=== PATIENT | male | born 1960 | race Caucasian/White ===

== ENCOUNTER → 2018-05-30 06:30 | Outpatient (CLI) | payer OTHER, SELFPAY ==
--- NOTE | 2018-05-30 06:39 | XR_ITS ---
XR shoulder LT min 2V HISTORY: ITS.REASON: ROTATOR CUFF SYNDROME OF LEFT SHOULDER, left shoulder pain ORDERING PHYSICIAN: Carlo Gill MD PATIENT AGE: 58 years Comparison: None FINDINGS: No fracture or dislocation. No lytic or blastic change. There is normal mineralization. There is mild subacromial stenosis along with mild hypertrophic changes of the greater tuberosity. These findings may be seen seen with rotator cuff disease. IMPRESSION: Mild subacromial stenosis and mild hypertrophic change of the greater tuberosity may be seen with rotator cuff disease.
== END ==
PROVIDERS: PCP Family Medicine; Visit Provider Family Medicine
DX: M75.102 Unspecified rotator cuff tear or rupture of left shoulder, not specified as traumatic (principal)
CPT/HCPCS: 73030

== ENCOUNTER 2018-06-23 09:00 | Outpatient (RCR) | payer OTHER, SELFPAY ==
--- NOTE | 2018-06-20 10:37 | HMH.OTOPEV ---
PHYSICIAN CERTIFICATION: I certify the specified therapy services for Wilder J Palmer JR are required, authorized, and reviewed every 30 days.
== END 2018-06-23 09:05 | disposition home or self-care (01) ==
LOC: OT 09:00
PROVIDERS: Visit Provider Family Medicine
DX: M75.102 Unspecified rotator cuff tear or rupture of left shoulder, not specified as traumatic (principal)
CPT/HCPCS: 97110; 97165

== ENCOUNTER → 2019-04-13 15:24 | Outpatient (CLI) | payer OTHER, SELFPAY ==
[2019-04-13 16:22] LABS: Adenovirus F 40/41, stool Not Detected (NotDetected); Astrovirus Not Detected (NotDetected); Campylobacter Not Detected (NotDetected); Clostridium Difficile A/B, PCR Not Detected (NotDetected); Cryptosporidium Not Detected (NotDetected); Cyclospora Cayetanesis Not Detected (NotDetected); Entamoeba histolytica Not Detected (NotDetected); Enteroaggregative E coli Not Detected (NotDetected); Enteropathogenic E coli Not Detected (NotDetected); Enterotoxigenic E coli Not Detected (NotDetected); Giardia lamblia Not Detected (NotDetected); Norovirus Not Detected (NotDetected); Plesimonas Shigalloides, PCR Not Detected (NotDetected); Rotavirus A Not Detected (NotDetected); Salmonella, PCR Not Detected (NotDetected); Sapovirus Not Detected (NotDetected); Shiga-like toxin E coli Not Detected (NotDetected); Shigella Enterovasive E coli Not Detected (NotDetected); Vibrio Cholerae Not Detected (NotDetected); Vibrio, PCR Not Detected (NotDetected); Yersinia Entercolitica, PCR Not Detected (NotDetected)
== END ==
PROVIDERS: PCP Nurse Practitioner; Visit Provider Nurse Practitioner
DX: C83.18 Mantle cell lymphoma, lymph nodes of multiple sites (principal); C18.8 Malignant neoplasm of overlapping sites of colon
CPT/HCPCS: 87507

== ENCOUNTER → 2019-10-23 08:26 | Outpatient (CLI) | payer OTHER, SELFPAY ==
--- NOTE | 2019-10-23 08:30 | XR_ITS ---
PROCEDURE: XR SHOULDER LT MIN 2V CLINICAL INDICATION: left shoulder COMPARISON: SHOULDCMLT XR shoulder LT min 2V from 05/30/2018 FINDINGS: No fracture, dislocation, lytic change, or blastic change evident. No significant degenerative change IMPRESSION: Negative left shoulder Dictated by: Ismael Solorio MD 10/23/2019 18:06 Electronically signed by Ismael Solorio MD in [place] 10/23/2019 18:06
== END ==
PROVIDERS: PCP Nurse Practitioner; Visit Provider Orthopaedic Surgery
DX: M25.512 Pain in left shoulder (principal)
CPT/HCPCS: 73030

== ENCOUNTER 2019-11-05 14:00 | Outpatient (RCR) | payer OTHER, SELFPAY ==
--- NOTE | 2019-09-25 10:25 | HMH.OTOPEV ---
OT Inpatient Evaluation Rehab OT Outpatient Eval Start: 09/25/19 09:49 Freq: Status: Active Protocol: Document 09/25/19 09:50 RMMORRIS (Rec: 09/25/19 10:14 [id number] Electronically Signed By Wesley Beach OT 09/25/19 09:50 Outpatient Therapy Subjective History Subjective History Pt is a 59 year old male who reports to therapy for initial evaluation to left shoulder. Pt claims he had therapy to left shoulder for the same issues ~1 year ago. He began having pain and decreased motion again ~1 month ago and does not recall a specific injury causing the issues. Pt does have a past medical history of Colon CA and lymphoma (February 2019 diagnosis). Pt is still receiving monthly chemo treatments for this. Pt does demonstrate with decreased AROM and minimal strength deificts. Pt also has a palpable lumb around the medial deltoid; this could represent a possible tear. Therapist recommend pt go to ortho for further direction in imaging and treatment. Pt will continue to be seen in order to address all deficits. Chief Complaint Pain,Stiff,Weakness Symptom Type Ache,Throb,Sharp,Dull,Burning Symptoms Relieved By Rest/Positioning Symptoms Aggravated By Physical Activity,Lifting Prior Functional Limitations None Current Functional Limitations Reaching,Lifting,Housework, Sleeping,Recreation Activity Symptom Description Intermittent,Activity Dependent Level of pain today (0-10) 0 Pain scale - at its best (0-10) 0 Pain scale - at its worst (0-10) 6 Shoulder/Elbow Eval Shoulder Objective Measurements Shoulder ROM Left Shoulder Abduction Active Range of 125 degrees Motion (degrees) Shoulder Flexion Active Range of Motion 105 degrees (degrees) Query Text: Shoulder External Rotation Active Range 70 degrees of Motion (degrees) Shoulder Internal Rotation Active Range 70 degrees of Motion (degrees) pain with active ROM shoulder
== END 2019-11-05 14:05 | disposition home or self-care (01) ==
LOC: OT 14:00
PROVIDERS: Visit Provider Nurse Practitioner
DX: M75.102 Unspecified rotator cuff tear or rupture of left shoulder, not specified as traumatic (principal)
CPT/HCPCS: 97110; 97165

== ENCOUNTER 2020-02-01 18:19 | Observation (INO) | payer OTHER, SELFPAY ==
[2020-02-01] VITALS (24 sets, daily range): BP systolic 111–133; BP diastolic 61–90; PULSE 70–88; RESP 10–20; TEMP 36.4–43; O2SAT 92–98; BMI 28.7; BMI 28.5
--- NOTE | 2020-02-01 11:09 | XR_ITS ---
PROCEDURE: XR CHEST 2V CLINICAL HISTORY: HTN Hypertension COMPARISON: 1.5T MR SHOULDER LEFT from 10/09/2019 FINDINGS: The cardiomediastinal silhouette and pulmonary vascularity are within normal limits. There is nodularity in the left hilar region which may be due to overlapping vessel. Faint opacity is present in the right perihilar region overlying the anterior aspect of the right 4th rib and may be due to summation artifact. There is mild biapical pleural thickening and there is a faint irregular opacity in the left upper lobe at 8 mm. No acute bony abnormalities. IMPRESSION: Biapical pleural thickening with faint opacity left upper lobe which may be due to fibrotic changes. Cannot exclude developing nodule. Follow-up suggested. Dictated by: Ismael Solorio MD 02/01/2020 14:26 Electronically signed by Ismael Solorio MD in [place] 02/01/2020 14:26
--- NOTE | 2020-02-01 11:30 | XR_ITS ---
PROCEDURE: XR TIBIA FIBULA LT 2V CLINICAL INDICATION: abscess Soft tissue abscess, pain and swelling COMPARISON: No exams were available for comparison FINDINGS: No fracture or dislocation. No lytic or blastic change. There is normal mineralization. The joint spaces are well-preserved. No significant degenerative/arthritic changes. No erosive changes evident. Other findings:None. IMPRESSION: No acute findings. Dictated by: Ismael Solorio MD 02/01/2020 14:20 Electronically signed by Ismael Solorio MD in [place] 02/01/2020 14:20
--- NOTE | 2020-02-01 11:51 | ECG_ITS ---
APPROVED REPORT Exam: Resting ECG HR:77 bpm ECG Measurements Heart Rate 77 AXES UT 156 P 63 QRSd 88 QRS -22 QT 374 T 31 QTc 423 <Conclusion> Normal sinus rhythm LAD Otherwise a normal EKG Electronically signed by : Kee Gomez, 02/01/2020 19:56:18
[2020-02-01 13:07] LABS: INR 0.99 (0.9-1.1); Prothrombin Time 10.2 seconds (9.4-11.8)
[2020-02-01 13:40] LABS: Basophils # 0.1 K/mm3 (0-0.2); Basophils % 0.7 % (0.1-2.0); Eosinophils # 0.2 K/mm3 (0.0-0.4); Eosinophils % 2.2 % (0.1-12.0); Hemoglobin 15.9 g/dL (14.1-18.0); Lymphocytes # 1.7 K/mm3 (0.7-4.5); Lymphocytes % 18.8 % (10-50); Mean Corpuscular HGB Conc 33.8 g/dL (31.8-35.4); Mean Corpuscular Hemoglobin 29.5 pg (27.0-31.2); Mean Corpuscular Volume 87.4 fl (80-94); Monocytes # 0.7 K/mm3 (0.1-1.0); Monocytes % 7.5 % (1.7-9.3); Neutrophils # 6.4 K/mm3 (1.8-7.8); Neutrophils % 70.8 % (37.0-80.0); Platelet Count 183 K/mm3 (142-424); Red Blood Count 5.38 M/mm3 (4.60-6.20); Red Cell Distribution Width 14.1 % (11.5-17.5)
[2020-02-01 14:45] LABS: Alanine Aminotransferase 29 U/L (12-78); Albumin Level 4.5 g/dl (3.5-5.0); Albumin/Globulin Ratio 1.7 (1.1-1.8); Alkaline Phosphatase 118 U/L (38-126); Anion Gap 14.6 mEq/L (5-15); Aspartate Amino Transferase 39 U/L (17-59); Blood Urea Nitrogen 15 mg/dl (9-20); Calcium 9.6 mg/dl (8.4-10.2); Carbon Dioxide 28 mmol/L (22.0-30.0); Chloride 96 mmol/L (98-107); Estimated Glomerular Filt Rate 86 ml/min (>60); GFR (African American) 105 ML/MIN (>60); Globulin 2.6 g/dL (1.3-3.2); Glucose 85 mg/dl (74-100); Potassium 4.6 mmoL/L (3.5-5.1); Sodium 134 mmol/L (136-145); Total Protein,Serum 7.1 g/dl (6.3-8.2)
[2020-02-01 14:58] LABS: Coronavirus 19 IgG Antibody Negative (Negative); Coronavirus 19 IgM Antibody Negative (Negative)
--- NOTE | 2020-02-01 15:17 | P.PN_ITS ---
[facility] Anesthesia Checklist - Structural Data Admitted From: Home Planned Operative Procedure/s: i/d lle Consent for Planned Operative Procedure(s) Verified: Yes - Additional verifications Anesthesia Reactions: No Hx Blood Transfusions: No Blood Transfusion Reaction: No - Airway Assessment C-Spine Mobility Assessed: Yes TMJ Mobility Assessed: Yes Dentition: Dentures-good fit - Neurological Assessment Level of Consciousness: Awake, Alert, Appropriate - Anesthesia Plan Anesthesia Risk discussed: Yes Anesthesia Plan: Verified ASA Class: III Anesthesia Type: General [facility] History I have reviewed the patient's past medical history: Yes Medical History: Reports:: Cancer (mantel cell lymphoma, colon cancer), Hypertension Denies:: Diabetes Mellitus Type 1, Diabetes Mellitus Type 2, Internal Pacemaker, MRSA, Seizures *Have you ever received a pneumonia vaccine?: No *Have you received a flu vaccine this season?: Yes Other Medical History: Reports: Arthritis. Denies: Blood Transfusion Reaction Anesthesia experience/problems:: none Other Surgeries: Yes: Cancer Surgery, Colonoscopy, Colon Resection. No: Pacemaker Amputation: No Fractures: Yes - *Social History Last grade of school completed: High school graduate Smoking Status: Never smoker Alcohol Intake: never Substance Use Type: denies use *Occupational Status:: employed Housing: house Household Members: spouse *Travel in the last 8 weeks: None Family Hx:: Cancer
--- NOTE | 2020-02-01 17:35 | HMH.ANESI ---
[facility] Anesthesia Record Part I Intake, IV Amount: 1,000 Estimated blood loss (mL): 0 Urine output (mL): 0 Blood Pressure: 121/80 SaO2: 95 Pulse Rate: 88 Respiratory Rate: 12 Temperature: 97.5 F Patient is:: Awake, Stable Stable to PACU at:: 17:30
--- NOTE | 2020-02-01 18:29 | HMH.ORTHHP ---
*Admission Date: 02/01/20 *Reason for consult:: s/p I&D L leg *History of present illness: 59-year-old gentleman presents for initial orthopedic evaluation of a wound to the left lower leg. He was seen this morning in the wound care clinic, where debridement was attempted but was not able to be completed due to pain. The wound care physical therapist was concerned for underlying abscess and sent the patient up to my clinic for evaluation. The patient says he noted pain in that area around 1 week ago, on 01/25/2020. He has recently been helping a family member move, who [place] out [place] the country, and he reports several chigger bites. He thought perhaps one of those bites has gotten infected. He saw his primary care on 01/28/2020 and sent for wound care evaluation. At that time he was also started on Bactrim, which he has been taking twice per day. He has also been taking NSAIDs to help alleviate his pain. He has not noted any fevers or chills, though there is some drainage from the wound. He does not note this as purulent. The wound has increased in redness, warmth and pain over the last 2 days, and the central area of the wound has darkened to a black color. He has a history of mantle cell lymphoma and also colon cancer, treated with colon resection. He also had a stem cell transplant. He is currently on chemotherapy. The remainder of his health history is not significant for any major medical comorbidities per his report. His blood pressure has been elevated at times but is controlled with medication. He is allergic to aspirin and Phenergan. He is a non-smoker. I discussed the parents the nature of the patient's wound with him, and have recommended surgical debridement. He is on chemotherapy and immune suppressed, and is at high risk for spread of this infection to the point may become limb or life-threatening. I do not believe oral antibiotics will be sufficient to clear this. I would like to debride this today, followed by admission overnight for wound care and IV antibiotics. I discussed the risks of surgery with the patient, including bleeding, persistent or worsening infection, wound healing complications, need for prolonged wound care treatment and possible wound VAC placement, weakness in the lower leg, and risk of anesthesia. The patient vocalized understanding is provided informed consent for the procedure. I&D was performed this afternoon without complication. No collection of pus was seen, but full-thickness skin necrosis and necrosis of underlying fat. No tunneling underwound or tracking of infection proximally/distally. Full-thickness excision of wound, with exposed fascia/muscle. Wound measurements: 3 x 3.2 x 1.2 cm [facility] History I have reviewed the patient's past medical history: Yes Medical History: Reports:: Cancer (mantel cell lymphoma, colon cancer), Hypertension Denies:: Diabetes Mellitus Type 1, Diabetes Mellitus Type 2, Internal Pacemaker, MRSA, Seizures *Have you ever received a pneumonia vaccine?: No *Have you received a flu vaccine this season?: Yes Other Medical History: Reports: Arthritis. Denies: Blood Transfusion Reaction Anesthesia experience/problems:: none Other Surgeries: Yes: Cancer Surgery, Colonoscopy, Colon Resection. No: Pacemaker Amputation: No Fractures: Yes - *Social History Last grade of school completed: High school graduate Smoking Status: Never smoker Alcohol Intake: never Substance Use Type: denies use *Occupational Status:: employed Housing: house Household Members: spouse *Travel in the last 8 weeks: None Family Hx:: Cancer Review of Systems - Review of Systems Review of systems:: pertinent systems reviewed and negative unless documented below - Constitutional Denies anorexia, Denies body ache(s), Denies chills, Denies fever(s) - *Cardiovascular Denies chest pain, Denies shortness of breath - *Gastrointestinal Denies abdominal pain - *Musculoskeletal Denies joint pain, Denies j
--- NOTE | 2020-02-01 18:33 | PC.NURSE ---
spoke with pharmacist cellulose insulation helper. he stated md had called him about vancomycin consult. stated he would place the order in shortly.
--- NOTE | 2020-02-01 18:43 | HMH.OPNOTE ---
Date of procedure: 02/01/20 Pre-op Diagnosis:: L lower leg cellulitis with necrotic wound and abscess Post-op Diagnosis:: L lower leg cellulitis with necrotic wound, likely spider bite Procedure performed:: irrigation and debridement L lower leg wound Surgeon:: Irma Cao MD Dining Room Busser(s):: Michael Santos NAIL SETTER:: Cristopher Rodriguez Anesthesia: LMA Estimated blood loss (mL): 10 Clinical Note:: 59-year-old gentleman presents for initial orthopedic evaluation of a wound to the left lower leg. He was seen this morning in the wound care clinic, where debridement was attempted but was not able to be completed due to pain. The wound care physical therapist was concerned for underlying abscess and sent the patient up to my clinic for evaluation. The patient says he noted pain in that area around 1 week ago, on 01/25/2020. He has recently been helping a family member move, who lives out in the country, and he reports several chigger bites. He thought perhaps one of those bites has gotten infected. He saw his primary care on 01/28/2020 and sent for wound care evaluation. At that time he was also started on Bactrim, which he has been taking twice per day. He has also been taking NSAIDs to help alleviate his pain. He has not noted any fevers or chills, though there is some drainage from the wound. He does not note this as purulent. The wound has increased in redness, warmth and pain over the last 2 days, and the central area of the wound has darkened to a black color. He has a history of mantle cell lymphoma and also colon cancer, treated with colon resection. He also had a stem cell transplant. He is currently on chemotherapy. The remainder of his health history is not significant for any major medical comorbidities per his report. His blood pressure has been elevated at times but is controlled with medication. He is allergic to aspirin and Phenergan. He is a non-smoker. I discussed the parents the nature of the patient's wound with him, and have recommended surgical debridement. He is on chemotherapy and immune suppressed, and is at high risk for spread of this infection to the point may become limb or life-threatening. I do not believe oral antibiotics will be sufficient to clear this. I would like to debride this today, followed by admission overnight for wound care and IV antibiotics. I discussed the risks of surgery with the patient, including bleeding, persistent or worsening infection, wound healing complications, need for prolonged wound care treatment and possible wound VAC placement, weakness in the lower leg, and risk of anesthesia. The patient vocalized understanding is provided informed consent for the procedure. Operative findings:: full-thickness skin necrosis of wound, with moderate surrounding cellulitis no abscess seen deep subcutaneous tissue/fat necrotic as well, extending down to fascia --> full thickness excision performed base of wound with exposed fascia/muscle no tracking/tunneling of wound proximally or distally; no pus expressed wound measurements: 3.0 cm L x 3.2 cm W x 1.2 cm D tissue path/cx sent + 2 deep cx swabs Operative note:: The patient was identified in preoperative holding and the L leg signed by myself. Informed consent was verified with the patient and all questions answered. He was then taken to the operating room, where general anesthesia was induced with an LMA; antibiotics were held until cultures taken. Once the patient was asleep, dressings were removed from the left leg and a non-sterile tourniquet placed on the upper L thigh. Tourniquet was placed as a precaution but was not intended to be used. All bony prominences were well padded, including the right lower extremity and both arms. The left lower leg was then prepped and draped in the usual sterile fashion, with betadine prep. Timeout was performed, identifying the correct patient, correct procedure, and correct site. The procedure was begin by mark
--- NOTE | 2020-02-01 18:52 | PC.NURSE ---
two 1000mg vials of vancomycin obatined. both vials filled with 10ml of ns. pulled up a total of 17.5ml to equal 1750mg and mixed this in 250ml bag of ns. verified mixing/dosing with mely mccain
--- NOTE | 2020-02-01 19:03 | PC.NURSE ---
educated patient on use of ice as needed, incentive spirometer, and to elevate extremity.
--- NOTE | 2020-02-01 19:10 | PC.NURSE ---
report given to leon
[2020-02-02] VITALS (7 sets, daily range): BP systolic 114–145; BP diastolic 72–89; PULSE 70–88; RESP 16–20; TEMP 36.4–36.7; O2SAT 92–97; BMI 28.4
--- NOTE | 2020-02-02 04:50 | PC.NURSE ---
pt A&OX4. post op I&D to L leg, surgical dressing in place c/d/i. pt denies any pain. pt has ambulated to side of bed and tolerated fair. pt weaned off NC and remains on RA with O2 sat @ 95%.
[2020-02-02 06:37] LABS: Basophils % 0.1 % (0.1-2.0); Eosinophils % 0.4 % (0.1-12.0); Hematocrit 43.4 % (42.0-52.0); Hemoglobin 14.8 g/dL (14.1-18.0); Lymphocytes # 0.8 K/mm3 (0.7-4.5); Mean Corpuscular Hemoglobin 29.6 pg (27.0-31.2); Mean Corpuscular Volume 86.9 fl (80-94); Mean Platelet Volume 8.1 fl (7.4-10.4); Monocytes # 0.2 K/mm3 (0.1-1.0); Monocytes % 2.9 % (1.7-9.3); Neutrophils # 6.4 K/mm3 (1.8-7.8); Neutrophils % 86.5 % (37.0-80.0); Platelet Count 171 K/mm3 (142-424); Red Cell Distribution Width 14.2 % (11.5-17.5); White Blood Count 7.4 K/mm3 (4.8-10.8)
[2020-02-02 06:48] LABS: MANUAL DIFFERENTIAL MANUAL DIFFERENTIAL (MANUAL DIFF)
[2020-02-02 08:02] LABS: Lymphocytes % 12 % (10-50); Monocytes % 7 % (2-9); Neutrophils % 78 % (42-76); Platelet Estimate Normal; RBC Morphology Normal; Total Cells Counted 100
--- NOTE | 2020-02-02 09:20 | HMH.PHAVTE ---
[facility] Pharmacy VTE Monitoring - Patient Demographics Admission date: 02/01/20 Report Date: 02/02/20 Time: 09:20 Allergies/Adverse Reactions: Patient Allergies aspirin Allergy (Unknown, Verified 02/01/20 13:15) Nose Bleed promethazine [From Phenergan] Allergy (Verified 02/01/20 13:15) Unknown allergy reaction Height: 1.83 m Weight: 95.218 kg Patient Problems: Current Active Problems Insect bite of leg, left (Acute) Skin necrosis (Acute) Cellulitis of leg, left (Acute) Cancer (Acute) - VTE Risk Labs: VTE Related Lab Results Hgb 14.8 g/dL (14.1-18.0) 02/02/20 06:17 Hct 43.4 % (42.0-52.0) 02/02/20 06:17 Plt Count 171 K/mm3 (142-424) 02/02/20 06:17 PT 10.2 seconds (9.4-11.8) 02/01/20 12:12 INR 0.99 (0.9-1.1) 02/01/20 12:12 BUN 15 mg/dl (9-20) 02/01/20 12:12 Creatinine 0.90 mg/dl (0.66-1.25) 02/01/20 12:12 Was VTE Risk Assessment Performed: No VTE Score: 3 VTE Risk Level: Low Risk - Prophylaxis VTE Prophylaxis Ordered?: Yes Types of VTE Prophylaxis: IPCS Thigh High Location of Applied Device: Right Leg
--- NOTE | 2020-02-02 09:33 | HMH.PHAINT ---
HOME MEDICATIONS RECONCILED FROM MD OFFICE LIST.
--- NOTE | 2020-02-02 09:46 | HMH.PHACONS ---
- Pharmacy Consult Date: 02/02/20 Time: 09:48 Referring provider: DR. BURTON Reason for Consult:: VANCOMYCIN DOSING Allergies and ADEs:: Allergies Allergy/AdvReac Type Severity Reaction Status Date / Time aspirin Allergy Unknown Nose Bleed Verified 02/01/20 13:15 promethazine [From Phenergan] Allergy Unknown Verified 02/01/20 13:15 allergy reaction Home Medications:: Home Medications Medication Instructions Recorded Confirmed Type folic acid 800 mcg tablet 0.8 mg PO DAILY 10/23/19 02/01/20 History ibrutinib 560 mg tablet 560 mg PO DAILY 10/23/19 02/01/20 History sumatriptan succinate 50 mg tablet 50 tab PO DAILYP PRN 10/23/19 02/02/20 History Aspirin [Aspirin 81mg chewable 81 mg PO DAILY 02/02/20 02/02/20 History tab] Lisinopril/Hydrochlorothiazide 1 each PO DAILY 02/02/20 02/02/20 History [Lisinopril-Hctz 10-12.5 mg Tab] Multivitamin 1 each PO DAILY 02/02/20 02/02/20 History Sulfamethoxazole/Trimethoprim 1 tab PO BID 02/02/20 02/02/20 History [Sulfamethoxazole-Tmp Ds Tablet*] Height: 1.83 m Weight: 95.218 kg Laboratory Results:: Laboratory Results - last 24 hr 02/01/20 12:12: PT 10.2, INR 0.99 02/01/20 12:12: WBC 9.0, RBC 5.38, Hgb 15.9, Hct 47.0, MCV 87.4, MCH 29.5, MCHC 33.8, RDW 14.1, Plt Count 183, MPV 8.0, Neut % (Auto) 70.8, Lymph % (Auto) 18.8, Vernon % (Auto) 7.5, Eos % (Auto) 2.2, Baso % (Auto) 0.7, Neut # (Auto) 6.4, Lymph # (Auto) 1.7, Vernon # (Auto) 0.7, Eos # (Auto) 0.2, Baso # (Auto) 0.1 02/01/20 12:12: SARS-CoV-2 IgG Ab (Rapid) Negative, SARS-CoV-2 IgM Ab (Rapid) Negative 02/01/20 12:12: Sodium 134 L, Potassium 4.6, Chloride 96 L, Carbon Dioxide 28, Anion Gap 14.6, BUN 15, Creatinine 0.90, Estimated GFR 86, Est GFR ( Amer) 105, Glucose 85, Calcium 9.6, Total Bilirubin 1.0, AST 39, ALT 29, Alkaline Phosphatase 118, Total Protein 7.1, Albumin 4.5, Globulin 2.6, Albumin/Globulin Ratio 1.7 02/02/20 06:17: WBC 7.4, RBC 5.00, Hgb 14.8, Hct 43.4, MCV 86.9, MCH 29.6, MCHC 34.0, RDW 14.2, Plt Count 171, MPV 8.1, Neut % (Auto) 86.5 H, Lymph % (Auto) 10.0, Vernon % (Auto) 2.9, Eos % (Auto) 0.4, Baso % (Auto) 0.1, Neut # (Auto) 6.4, Lymph # (Auto) 0.8, Vernon # (Auto) 0.2, Eos # (Auto) 0.0, Baso # (Auto) 0.0, Total Counted 100, Neutrophils % (Manual) 78 H, Band Neutrophils % 1.0, Lymphocytes % (Manual) 12, Monocytes % (Manual) 7, Metamyelocytes % 2.0 H, Platelet Estimate Normal, RBC Morphology Normal Medical History: Reports:: Atrial Fibrillation, Cancer, Hypertension Denies:: Diabetes Mellitus Type 1, Diabetes Mellitus Type 2, Internal Pacemaker, MRSA, Seizures Assessment and Plan (1) Insect bite of leg, left Current visit: Yes Status: Acute Category: Medical Code(s): S80.862A - Insect bite (nonvenomous), left lower leg, initial encounter; W57.XXXA - Bitten or stung by nonvenomous insect and other nonvenomous arthropods, initial encounter (2) Skin necrosis Current visit: Yes Status: Acute Category: Medical Code(s): I96 - Gangrene, not elsewhere classified (3) Cellulitis of leg, left Current visit: Yes Status: Acute Category: Medical Code(s): L03.116 - Cellulitis of left lower limb (4) Cancer Current visit: Yes Status: Acute Category: Medical Code(s): C80.1 - Malignant (primary) neoplasm, unspecified - Assessment and plan all Dx Assessment and Plan for all problems:: BASED ON PATIENT FACTORS, RECOMMEND VANCOMYCIN 1750 MG IV Q12H. PHARMACY WILL FOLLOW DAILY AND ADJUST APPROPRIATE.
--- NOTE | 2020-02-02 17:11 | P.PN_ITS ---
Subjective Date: 02/02/20 Time: 16:30 Principal diagnosis: Insect bite with cellulitis, left leg Interval history: Patient is status post debridement of necrotic tissue left leg, secondary to insect bite, post op day #1. Patient is lying down on the bed. Says he is doing better but still reports significant pain. He says the pain is well-controlled with medication. No history of any nausea or vomiting. Patient says he is eating and drinking well. No history of any distal tingling or numbness. PN: Obj Ex Vital signs: Temp Pulse Resp BP Pulse Ox 98.1 F 85 20 132/76 97 02/02/20 15:29 02/02/20 15:29 02/02/20 15:29 02/02/20 15:29 02/02/20 15:29 Narrative: Laboratory Results - last 24 hr 02/02/20 06:17: WBC 7.4, RBC 5.00, Hgb 14.8, Hct 43.4, MCV 86.9, MCH 29.6, MCHC 34.0, RDW 14.2, Plt Count 171, MPV 8.1, Neut % (Auto) 86.5 H, Lymph % (Auto) 10.0, [place] % (Auto) 2.9, Eos % (Auto) 0.4, Baso % (Auto) 0.1, Neut # (Auto) 6.4, Lymph # (Auto) 0.8, [place] # (Auto) 0.2, Eos # (Auto) 0.0, Baso # (Auto) 0.0, Total Counted 100, Neutrophils % (Manual) 78 H, Band Neutrophils % 1.0, Lymphocytes % (Manual) 12, Monocytes % (Manual) 7, Metamyelocytes % 2.0 H, Platelet Estimate Normal, RBC Morphology Normal Microbiology 02/01/20 09:15 Leg,Left Gram Stain - Final 02/01/20 09:15 Leg,Left Wound Culture - Preliminary Gram Positive Cocci 02/01/20 16:48 Leg,Left - Abscess Gram Stain - Final 02/01/20 16:48 Leg,Left - Abscess Gram Stain - Preliminary Exam General appearance: alert, active, awake, no acute distress Cardiovascular: regular rate & rhythm, normal peripheral pulses Respiratory: No respiratory distress noted, speaks in full sentences ABD: soft and non tender Neuro: alert, awake, oriented x 3 Psych: Appropriate mood and affect for his situation On examination of the left leg, the dressings are clean, dry and intact. The dressings are changed by me. There is minimal soakage of the dressings. The wound looks clean and healthy with active bleeding from the raw area/granulation tissue. No purulent discharge or slough noted. Surrounding erythema and cellulitis somewhat better compared to yesterday. Distal pulses are 2+. Distal sensation is intact to light touch throughout. No motor deficits noted distally. Progress Note: A&P (1) Insect bite of leg, left Status: Acute Current Visit: Yes (2) Skin necrosis Status: Acute Current Visit: Yes (3) Cellulitis of leg, left Status: Acute Current Visit: Yes (4) Cancer Status: Acute Current Visit: Yes Assessment and Plan for All Diagnoses:: I have reviewed the clinical findings and progress with the patient and his . Patient is doing better but still has some pain. Advised him to continue elevation, regular icing, mobilize weightbearing as tolerated on the left lower extremity. I have changed the dressings today and applied a nonadhesive (Adaptic and gauze) dressings. Early culture results show many gram-positive cocci and recommend continuation of IV vancomycin. Possible discharge tomorrow with appropriate oral antibiotics depending on the culture results. Continue SCD right lower extremity.
--- NOTE | 2020-02-02 19:06 | PC.NURSE ---
NO ACUTE CHANGES. PAIN MEDS ADMINISTERED PER MAR AND MEDICATION GIVEN BEFORE DRESSING CHANGE COMPLETED BY DR BAUTISTA. VSS. NO DISTRESS NOTED
[2020-02-03 03:45] VITALS: BP 115/74; PULSE 69; RESP 18; TEMP 36.5; O2SAT 98
--- NOTE | 2020-02-03 04:31 | PC.NURSE ---
Pt slept well this shift. No complains of pain. LLE elevated w/ good cap refill and +2 distal pulses. Drsg to LLE c/d/i.
[2020-02-03 05:00] VITALS: BMI 29.5
[2020-02-03 07:18] LABS: Vancomycin,Trough 10.5 ug/mL (5.0-10.0)
[2020-02-03 07:51] VITALS: RESP 18; O2SAT 97
[2020-02-03 08:00] VITALS: BP 138/75; PULSE 108; RESP 16; TEMP 36.7; O2SAT 98
--- NOTE | 2020-02-03 10:33 | HMH.PHACONS ---
- Pharmacy Consult Date: 02/03/20 Time: 10:33 Referring provider: DR. BURTON Reason for Consult:: VANCOMYCIN TROUGH LEVEL Allergies and ADEs:: Allergies Allergy/AdvReac Type Severity Reaction Status Date / Time aspirin Allergy Unknown Nose Bleed Verified 02/01/20 13:15 promethazine [From Phenergan] Allergy Unknown Verified 02/01/20 13:15 allergy reaction Home Medications:: Home Medications Medication Instructions Recorded Confirmed Type folic acid 800 mcg tablet 0.8 mg PO DAILY 10/23/19 02/01/20 History ibrutinib 560 mg tablet 560 mg PO DAILY 10/23/19 02/01/20 History sumatriptan succinate 50 mg tablet 50 tab PO DAILYP PRN 10/23/19 02/02/20 History Aspirin [Aspirin 81mg chewable 81 mg PO DAILY 02/02/20 02/02/20 History tab] Lisinopril/Hydrochlorothiazide 1 each PO DAILY 02/02/20 02/02/20 History [Lisinopril-Hctz 10-12.5 mg Tab] Multivitamin 1 each PO DAILY 02/02/20 02/02/20 History Sulfamethoxazole/Trimethoprim 1 tab PO BID 02/02/20 02/02/20 History [Sulfamethoxazole-Tmp Ds Tablet*] Height: 1.83 m Weight: 98.997 kg Laboratory Results:: Laboratory Results - last 24 hr 02/03/20 06:45: Vancomycin Trough 10.5 H Medical History: Reports:: Atrial Fibrillation, Cancer, Hypertension Denies:: Diabetes Mellitus Type 1, Diabetes Mellitus Type 2, Internal Pacemaker, MRSA, Seizures Assessment and Plan (1) Insect bite of leg, left Current visit: Yes Status: Acute Category: Medical Code(s): S80.862A - Insect bite (nonvenomous), left lower leg, initial encounter; W57.XXXA - Bitten or stung by nonvenomous insect and other nonvenomous arthropods, initial encounter (2) Skin necrosis Current visit: Yes Status: Acute Category: Medical Code(s): I96 - Gangrene, not elsewhere classified (3) Cellulitis of leg, left Current visit: Yes Status: Acute Category: Medical Code(s): L03.116 - Cellulitis of left lower limb (4) Cancer Current visit: Yes Status: Acute Category: Medical Code(s): C80.1 - Malignant (primary) neoplasm, unspecified - Assessment and plan all Dx Assessment and Plan for all problems:: BASED ON PATIENT FACTORS AND VANCOMYCIN TROUGH LEVEL, RECOMMEND CONTINUING VANCOMYCIN 1750 MG IV Q12H. PHARMACY WILL CONTINUE TO MONITOR DAILY AND ADJUST APPROPRIATE.
--- NOTE | 2020-02-03 14:51 | PC.NURSE ---
PT REMAINS NON-WT BEARING ON LLE. CURRENTLY SITTING UP IN BED VISITING WITH FAMILY. LLE ELEVATED ON PILLOWS, WOUND COVERED WITH DRESSING AND ADITHYA WRAP AT THIS TIME. C/D/I NO COMPLAINTS OF PAIN THIS SHIFT. SMALL AMOUNT OF EDEMA NOTED DISTAL TO DRESSING, NON-PITTING, NO PAIN ON PALPATION. PATIENT AMBULATED WITH WALKER TO THIS AFTERNOON, BM NOTED, PATIENT TOLERATED WELL. NO C/O DIZZINESS/SOA/PAIN WITH AMBULATION. PT ON RA. NO NEEDS AT THIS TIME. WILL CONTINUE TO MONITOR
[2020-02-03 16:00] VITALS: BP 121/80; PULSE 69; RESP 16; TEMP 36.5; O2SAT 98
--- NOTE | 2020-02-03 18:18 | HMH.DCSUM ---
General - General Admission date:: 02/01/20 Discharge date: 02/03/20 HPI HPI: 59-year-old gentleman presents for initial orthopedic evaluation of a wound to the left lower leg. He was seen this morning in the wound care clinic, where debridement was attempted but was not able to be completed due to pain. The wound care physical therapist was concerned for underlying abscess and sent the patient up to my clinic for evaluation. The patient says he noted pain in that area around 1 week ago, on 01/25/2020. He has recently been helping a family member move, who [place] out [place] the country, and he reports several chigger bites. He thought perhaps one of those bites has gotten infected. He saw his primary care on 01/28/2020 and sent for wound care evaluation. At that time he was also started on Bactrim, which he has been taking twice per day. He has also been taking NSAIDs to help alleviate his pain. He has not noted any fevers or chills, though there is some drainage from the wound. He does not note this as purulent. The wound has increased in redness, warmth and pain over the last 2 days, and the central area of the wound has darkened to a black color. He has a history of mantle cell lymphoma and also colon cancer, treated with colon resection. He also had a stem cell transplant. He is currently on chemotherapy. The remainder of his health history is not significant for any major medical comorbidities per his report. His blood pressure has been elevated at times but is controlled with medication. He is allergic to aspirin and Phenergan. He is a non-smoker. I discussed the parents the nature of the patient's wound with him, and have recommended surgical debridement. He is on chemotherapy and immune suppressed, and is at high risk for spread of this infection to the point may become limb or life-threatening. I do not believe oral antibiotics will be sufficient to clear this. I would like to debride this today, followed by admission overnight for wound care and IV antibiotics. I discussed the risks of surgery with the patient, including bleeding, persistent or worsening infection, wound healing complications, need for prolonged wound care treatment and possible wound VAC placement, weakness in the lower leg, and risk of anesthesia. The patient vocalized understanding is provided informed consent for the procedure. I&D was performed this afternoon without complication. No collection of pus was seen, but full-thickness skin necrosis and necrosis of underlying fat. No tunneling underwound or tracking of infection proximally/distally. Full-thickness excision of wound, with exposed fascia/muscle. Wound measurements: 3 x 3.2 x 1.2 cm The above per H&P by Dr. Cao Hospital Course Hospital Course: Patient was taken to the operating room and soft tissue debridement was performed on 02/01/2020 without complication. No collection of pus was seen, but full-thickness skin necrosis and necrosis of underlying fat with extensive surrounding cellulitis was noted. No tunneling underwound or tracking of infection proximally/distally. Full-thickness excision of wound, with exposed fascia/muscle. Wound measurements: 3 x 3.2 x 1.2 cm. Following the procedure the patient was admitted to hospital for IV antibiotics. He was continued on IV vancomycin while admitted to hospital. Culture results showed staph aureus, beta-lactamase positive but sensitive to oxacillin. Postoperatively he made good progress and has been apyrexial. Surgical dressings were changed on the first postoperative day. The pain, swelling and mobility of the foot and ankle improved significantly. Following definitive culture results, patient was discharged home to continue oral Bactrim DS which he was on prior to admission. At the time of discharge patient is hemodynamically stable. Objective Vital signs: Temp Pulse Resp BP Pulse Ox 97.7 F 69 16 121/80 98 02/03/20 16:00
== END 2020-02-03 19:18 | disposition home or self-care (01) ==
PROVIDERS: Admitting Provider Orthopaedic Surgery; PCP Nurse Practitioner; Visit Provider Orthopaedic Surgery
PROC: (CPT 10061; principal; 2020-02-01 15:00)
DX: S80.862A Insect bite (nonvenomous), left lower leg, initial encounter (principal); L03.116 Cellulitis of left lower limb; B95.62 Methicillin resistant Staphylococcus aureus infection as the cause of diseases classified elsewhere; I10 Essential (primary) hypertension; C83.10 Mantle cell lymphoma, unspecified site; C18.9 Malignant neoplasm of colon, unspecified; Z90.49 Acquired absence of other specified parts of digestive tract; Z79.899 Other long term (current) drug therapy
CPT/HCPCS: 10061; 36415; 71046; 73590; 80053; 80202; 85007; 85025; 85610; 86328; 87070; 87075; 87077; 87186; 87205; 88304; 93005; 96374; G0378; J2405; J3370

== ENCOUNTER → 2020-02-21 08:50 | Outpatient (CLI) | payer OTHER, SELFPAY ==
[2020-02-21 08:52] LABS: MANUAL DIFFERENTIAL MANUAL DIFFERENTIAL (MANUAL DIFF)
[2020-02-21 09:02] LABS: Basophils % 0.6 % (0.1-2.0); Eosinophils # 0.3 K/mm3 (0.0-0.4); Eosinophils % 6.3 % (0.1-12.0); Hematocrit 43.1 % (42.0-52.0); Hemoglobin 15.4 g/dL (14.1-18.0); Lymphocytes # 1.3 K/mm3 (0.7-4.5); Lymphocytes % 26.9 % (10-50); Mean Corpuscular HGB Conc 35.7 g/dL (31.8-35.4); Mean Corpuscular Hemoglobin 29.9 pg (27.0-31.2); Mean Corpuscular Volume 83.8 fl (80-94); Mean Platelet Volume 7.3 fl (7.4-10.4); Monocytes # 1.1 K/mm3 (0.1-1.0); Monocytes % 22.9 % (1.7-9.3); Neutrophils % 43.3 % (37.0-80.0); Platelet Count 186 K/mm3 (142-424); Red Blood Count 5.14 M/mm3 (4.60-6.20); Red Cell Distribution Width 13.9 % (11.5-17.5); White Blood Count 4.7 K/mm3 (4.8-10.8)
[2020-02-21 09:14] LABS: C-Reactive Protein 3.3 mg/L (0-4)
[2020-02-21 09:38] LABS: Eosinophils % 6 % (0-3); Lymphocytes % 27 % (10-50); Monocytes % 7 % (2-9); Neutrophils % 57 % (42-76); Platelet Estimate Normal; RBC Morphology Normal; Total Cells Counted 100
[2020-02-21 10:06] LABS: Erythrocyte Sedimentation Rate 6 mm/hr (0-20)
== END ==
PROVIDERS: Visit Provider Orthopaedic Surgery
DX: L03.116 Cellulitis of left lower limb (principal); I96 Gangrene, not elsewhere classified; S80.862A Insect bite (nonvenomous), left lower leg, initial encounter; W57.XXXA Bitten or stung by nonvenomous insect and other nonvenomous arthropods, initial encounter
CPT/HCPCS: 36415; 85007; 85014; 85018; 85048; 85049; 85651; 86140

== ENCOUNTER 2020-04-08 10:00 | Outpatient (RCR) | payer OTHER, SELFPAY ==
--- NOTE | 2020-02-01 10:07 | HMH.PTOPWND ---
Rehab Outpt Wound Evaluation Rehab OP Wound Evaluation Start: 02/01/20 09:47 Freq: Status: Active Protocol: Document 02/01/20 09:47 SHALINI (Rec: 02/01/20 10:07 SHALINI [id number]) Electronically Signed By Spencer Arredondo, PT 02/01/20 09:47 Subjective/History History History Pt is 59 yowm who presents with L medial medrano wound x 1-2 wks. He reports getting some bug bites on his L leg 2 wks ago. He says that this wound began to irritate him 1 wk ago and has progressively gotten worse. He has hx of colon cancer S/P resection severeal years ago, HTN, R flank lymph node removal, and is currently undergoing chemo treatment for Non-Hodgkin's Lymphoma. Subjective Subjective He reports significant pain and tenderness to palpation in the yvonne-wound skin. Wound Eval Wound Left Medial Medrano Wound Type inscet bite vs MRSA abcess Is This a Chronic Wound No Wound Length (cm) 2.9 Wound Width (cm) 2.8 Wound Bed Appearance Beefy Red,Eschar Percentage Granulated (%) 50 Percentage of Eschar (Black) (%) 50 Wound Margins Description Well Defined Surrounding Tissue Appearance Dark Red Surrounding Tissue Temperature Warm Drainage Description Sanguineous Drainage Amount Moderate Primary Dressing Silver Dressing Comment opticell Ag Wound Secondary Dressing Type Composite Comment optifoam gentle Wound Debridement Method Sharps,Forceps,Gauze Wound Debridement Amount of Tissue Minimal Removed Wound Debridement Result Patient Unable to Tolerate Dressing Change Patient Tolerance Tolerated Poorly Wound Problems/Impairments Impairments Problems/Impairmments Palpation Tenderness,Impaired Walking,Impaired Standing, Increased Edema,Wound Care Needs,Subjective C/O Pain, Impaired Self Care/Self Management Prognosis Rehab Potential Good Clinical Impression Consistent with Diagnosis Yes Short Term Goals Number of Weeks 4 Decreased Palpation Tenderness Yes: to min Decrease Wound Area Yes: by 25% Decrease Black/Brown Eschar % Yes: by 100% Decrease Subject
--- NOTE | 2020-03-04 09:49 | HMH.RHREAS ---
Rehab Reassessment Rehab OP Re-assessment Start: 03/04/20 09:44 Freq: Status: Active Protocol: Document 03/04/20 09:47 SHALINI (Rec: 03/04/20 09:49 SHALINI [id number]) Electronically Signed By Spencer Arredondo, PT 03/04/20 09:47 Rehab Re-assessment Subjective Subjective Pt reports much less pain and able to walk much better now. Objective Objective Notes L medial medrano wound: L= 2.0 cm , W= 2.4 cm. Healthy Granulation tissue noted throughout the wound bed . Assessment Progress Assessment Progressing as Expected Assessment Notes Pt with considerable healing, some serosanguineous drainage remains. Patient goals met ST,2,3,4 Goals Not Met LT,2,3,4 Revised Goals none Plan Plan Continue per initial POC. Frequency of Therapy 2 x/wk Duration of therapy 8 wks Time and Billing Re-Eval Time 15 Re-Eval Billing Units 1 PHYSICIAN CERTIFICATION: I certify the specified therapy services for Wilder Palmer JR are required, authorized, and reviewed every 30 days.
== END 2020-04-08 10:05 | disposition home or self-care (01) ==
LOC: PT 10:00
PROVIDERS: Visit Provider Nurse Practitioner
DX: L03.90 Cellulitis, unspecified (principal)
CPT/HCPCS: 97140; 97162; 97164; 97597

== ENCOUNTER 2020-05-20 13:11 | Day surgery (SDC) | payer OTHER, SELFPAY ==
[2020-05-20] VITALS (10 sets, daily range): BP systolic 92–150; BP diastolic 53–90; PULSE 86–110; RESP 12–18; TEMP 36.1–36.8; O2SAT 91–98; BMI 29.8
[2020-05-20 13:48] LABS: Basophils # 0.2 K/mm3 (0-0.2); Basophils % 3.7 % (0.1-2.0); Eosinophils # 0.2 K/mm3 (0.0-0.4); Eosinophils % 3.5 % (0.1-12.0); Hematocrit 51.7 % (42.0-52.0); Hemoglobin 17.2 g/dL (14.1-18.0); Lymphocytes % 32.9 % (10-50); Mean Corpuscular HGB Conc 33.2 g/dL (31.8-35.4); Mean Corpuscular Hemoglobin 29.1 pg (27.0-31.2); Mean Corpuscular Volume 87.7 fl (80-94); Mean Platelet Volume 7.7 fl (7.4-10.4); Monocytes # 2.3 K/mm3 (0.1-1.0); Monocytes % 37.4 % (1.7-9.3); Neutrophils # 1.4 K/mm3 (1.8-7.8); Neutrophils % 22.5 % (37.0-80.0); Platelet Count 182 K/mm3 (142-424); Red Cell Distribution Width 13.4 % (11.5-17.5)
[2020-05-20 13:51] LABS: MANUAL DIFFERENTIAL MANUAL DIFFERENTIAL (MANUAL DIFF)
[2020-05-20 14:00] LABS: Chloride 98 mmol/L (98-107); Potassium 3.7 mmoL/L (3.5-5.1); Sodium 136 mmol/L (136-145)
[2020-05-20 14:03] LABS: Blood Urea Nitrogen 15 mg/dl (9-20); Creatinine Clearance Estimated 123 mL/min (50-200); Estimated Glomerular Filt Rate 86 ml/min (>60); GFR (African American) 104 ML/MIN (>60)
[2020-05-20 14:04] LABS: Anion Gap 12.7 mEq/L (5-15); Calcium 9.7 mg/dl (8.4-10.2); Carbon Dioxide 29 mmol/L (22.0-30.0); Glucose 89 mg/dl (74-100)
[2020-05-20 14:09] LABS: C-Reactive Protein 60.8 mg/L (0-4)
[2020-05-20 14:11] LABS: Eosinophils % 4 % (0-3); Lymphocytes % 52 % (10-50); Monocytes % 14 % (2-9); Neutrophils % 28 % (42-76); Platelet Estimate Normal; RBC Morphology Normal; Total Cells Counted 100
[2020-05-20 14:22] LABS: Coronavirus 19 IgG Antibody Negative (Negative); Coronavirus 19 IgM Antibody Negative (Negative)
[2020-05-20 14:39] LABS: Erythrocyte Sedimentation Rate 9 mm/hr (0-20)
--- NOTE | 2020-05-20 14:57 | P.PN_ITS ---
[facility] Anesthesia Checklist - Structural Data Admitted From: Home Planned Operative Procedure/s: i/d lle Consent for Planned Operative Procedure(s) Verified: Yes - Additional verifications Anesthesia Reactions: No Hx Blood Transfusions: No Blood Transfusion Reaction: No - Airway Assessment C-Spine Mobility Assessed: Yes TMJ Mobility Assessed: Yes Dentition: Dentures-good fit - Neurological Assessment Level of Consciousness: Awake, Alert, Appropriate - Anesthesia Plan Anesthesia Risk discussed: Yes Anesthesia Plan: Verified ASA Class: III Anesthesia Type: General [facility] History I have reviewed the patient's past medical history: Yes Medical History: Reports:: Atrial Fibrillation, Cancer (lymphoma, colon), Hypertension Denies:: Diabetes Mellitus Type 1, Diabetes Mellitus Type 2, Internal Pacemaker, MRSA, Seizures *Have you ever received a pneumonia vaccine?: Yes *Have you received a flu vaccine this season?: Yes Other Medical History: Reports: Arthritis. Denies: Blood Transfusion Reaction Anesthesia experience/problems:: none Laterality Cases: Left: Other Other Surgeries: Yes: Cancer Surgery, Colonoscopy, Colon Resection (2019). No: Pacemaker Amputation: No Fractures: Yes - *Social History Last grade of school completed: 11th or 12th Smoking Status: Never smoker Alcohol Intake: never Substance Use Type: denies use *Occupational Status:: employed Housing: house Household Members: spouse *Travel in the last 8 weeks: None Family Hx:: Cancer
--- NOTE | 2020-05-20 15:13 | P.PN_ITS ---
[facility] Anesthesia Record Part I Intake, IV Amount: 1,000 Estimated blood loss (mL): 0 Urine output (mL): 0 Blood Pressure: 92/53 SaO2: 95 Pulse Rate: 94 Respiratory Rate: 12 Temperature: 97.5 F Patient is:: Drowsy, Stable Stable to PACU at:: 15:10
--- NOTE | 2020-05-20 16:47 | HMH.OPNOTE ---
Date of procedure: 05/20/20 Pre-op Diagnosis:: left lower extremity necrotic skin lesion, abscess Post-op Diagnosis:: same Procedure performed:: 1) incision and drainage, debridement left lower extremity 2) skin biopsy left lower extremity Surgeon:: Irma Cao MD Off Track Betting Manager(s):: ALYSSA Sadler LANGUAGE THERAPIST:: Cristopher Rodriguez Anesthesia: GETA Estimated blood loss (mL): 5 Clinical Note:: 60yo M s/p I&D LEFT lower extremity wound performed on 02/01/2020. This was a necrotic skin lesion with high suspicion for underlying abscess but no collection of pus was seen. Solitary lesion, gross appearance most consistent with spider bite. Wound cultures and tissue culture were positive for MSSA and he has slowly but steadily been healing with local wound care. Pathology report noted marked acute and chronic inflammation of skin & subcutaneous tissue, with ulceration, necrosis and abscess formation. At his most recent clinic visit on 05/09/20 a crop of new lesions was noted scattered across the left lower leg; each was punctate and dark red in color, without surrounding cellulitis. He was placed on clindamycin by his PCP and was doing well. However, I was contacted contacted yesterday by the PCP due to worsening of his leg; one lesion, superior to the one treated surgically, had significantly worsened. It has necrosed and infection is suspected, possibly an abscess. He denies fevers or chills at home, no active drainage. He has a history of mantle cell lymphoma s/p stem cell transplant in 2012 and colon cancer s/p bowel resection 2018. He is on ibrutinib therapy currently. After discussion with the patient's PCP we have planned for I&D of the LLE today in the OR. He was given a dose of Rocephin in their office yesterday. The patient arrived today NPO and examined in pre-operative holding. Paper outpatient H&P was filled out for the procedure. I discussed the risks of surgery with the patient, including bleeding, persistent or worsening infection, wound healing complications, need for prolonged wound care treatment and possible wound VAC placement, weakness in the lower leg, and risk of anesthesia. The patient vocalized understanding and provided informed consent for the procedure. Operative findings:: old lesion that underwent I&D 02/01/20: now 1.2 cm W x 1 cm L x 0 cm D. Has filled in and granulation and flush with skin, healthy. scattered punctate lesions LLE, dark red, each ~1-2mm in diameter. no ulceration, no surrounding cellulitis, no drainage one of these lesions has increased in size to 3 cm x 3 cm, dark red/black with skin necrosis; central pale/white area c/w likely abscess Operative note:: The patient was identified in preoperative holding and the L leg signed by myself. Informed consent was verified with the patient and all questions answered. He was then taken to the operating room, where general anesthesia was induced with an LMA. He has been on antibiotics recently so they were not held until culture today; ancef was given just prior to induction of anesthesia. Once the patient was asleep, dressings were removed from the left leg and a non-sterile tourniquet placed on the upper L thigh. Tourniquet was placed as a precaution but was not intended to be used. All bony prominences were well padded, including the right lower extremity and both arms. The left lower leg was then prepped and draped in the usual sterile fashion, with betadine prep. Timeout was performed, identifying the correct patient, correct procedure, and correct site. The procedure was begin by using a curette to lightly debride the original wound from prior I&D 02/01/20. It had healthy beefy red granulation tissue, and this was lightly curetted to stimulate bleeding. No undermining was seen at the wound edges and it appeared healthy; it was covered with sterile telfa and tegaderm to protect it from infection during the remainder of the case. Next, a punch biopsy was performed of a small patch of
--- NOTE | 2020-05-21 09:09 | P.PN_ITS ---
[facility] Anesthesia Record Part II Discharge Time: 15:40 Destination: Surgical Day Care (OP Surgery) PACU nurse assessment reviewed?: Yes Patient Condition:: Good Anesthesia Complications:: None Swallowing reflex intact?: Yes Cyanosis?: No Blood Pressure: 118/72 Pulse Rate: 92 Temperature: 98 F Mental Status: Alert & Oriented Pain level:: 4 Nausea and/or vomitting:: None Intake, IV Amount: 0
[2020-05-21 09:10] VITALS: BP 118/72; PULSE 92; TEMP 36.6
== END 2020-05-20 16:11 | disposition home or self-care (01) ==
LOC: OR 13:12
PROVIDERS: PCP Nurse Practitioner; Visit Provider Orthopaedic Surgery
PROC: (CPT 10060; principal; 2020-05-20 14:00)
DX: L03.116 Cellulitis of left lower limb (principal); I48.91 Unspecified atrial fibrillation; I10 Essential (primary) hypertension; Z85.72 Personal history of non-Hodgkin lymphomas; L98.9 Disorder of the skin and subcutaneous tissue, unspecified; Z79.899 Other long term (current) drug therapy
CPT/HCPCS: 10060; 11106; 11042; 80048; 85007; 85025; 85651; 86140; 86328; 87070; 87075; 87077; 87186; 87205; 88305; 88312; 96374; J2405

== ENCOUNTER → 2020-05-23 16:04 | Outpatient (CLI) | payer OTHER, SELFPAY ==
[2020-05-23 16:09] LABS: MANUAL DIFFERENTIAL MANUAL DIFFERENTIAL (MANUAL DIFF)
[2020-05-23 17:20] LABS: Basophils # 0.6 K/mm3 (0-0.2); Basophils % 7.6 % (0.1-2.0); Eosinophils # 0.3 K/mm3 (0.0-0.4); Eosinophils % 3.5 % (0.1-12.0); Hematocrit 46.9 % (42.0-52.0); Hemoglobin 15.3 g/dL (14.1-18.0); Lymphocytes # 2.6 K/mm3 (0.7-4.5); Lymphocytes % 30.7 % (10-50); Mean Corpuscular HGB Conc 32.5 g/dL (31.8-35.4); Mean Corpuscular Hemoglobin 28.8 pg (27.0-31.2); Mean Corpuscular Volume 88.6 fl (80-94); Mean Platelet Volume 7.8 fl (7.4-10.4); Monocytes # 2.4 K/mm3 (0.1-1.0); Monocytes % 28.2 % (1.7-9.3); Neutrophils # 3.2 K/mm3 (1.8-7.8); Neutrophils % 37.6 % (37.0-80.0); Platelet Count 174 K/mm3 (142-424); Red Cell Distribution Width 13.2 % (11.5-17.5); White Blood Count 8.5 K/mm3 (4.8-10.8)
[2020-05-23 17:30] LABS: Anion Gap 12.1 mEq/L (5-15); Blood Urea Nitrogen 11 mg/dl (9-20); Calcium 9.7 mg/dl (8.4-10.2); Carbon Dioxide 31 mmol/L (22.0-30.0); Chloride 98 mmol/L (98-107); Estimated Glomerular Filt Rate 86 ml/min (>60); GFR (African American) 104 ML/MIN (>60); Glucose 99 mg/dl (74-100); Potassium 4.1 mmoL/L (3.5-5.1); Sodium 137 mmol/L (136-145)
[2020-05-23 17:35] LABS: C-Reactive Protein 51.2 mg/L (0-4)
[2020-05-23 17:54] LABS: Coronavirus 19 IgG Antibody Negative (Negative); Coronavirus 19 IgM Antibody Negative (Negative)
[2020-05-23 18:06] LABS: Erythrocyte Sedimentation Rate 8 mm/hr (0-20)
[2020-05-23 18:15] LABS: Eosinophils % 6 % (0-3); Lymphocytes % 31 % (10-50); Monocytes % 28 % (2-9); Neutrophils % 21 % (42-76); Platelet Estimate Normal; RBC Morphology Normal; Total Cells Counted 100
[2020-05-25 16:08] LABS: Peripheral Smear Review Scanned Result
== END ==
PROVIDERS: Visit Provider Orthopaedic Surgery
DX: I96 Gangrene, not elsewhere classified (principal); W57.XXXA Bitten or stung by nonvenomous insect and other nonvenomous arthropods, initial encounter; S80.862A Insect bite (nonvenomous), left lower leg, initial encounter
CPT/HCPCS: 36415; 80048; 85007; 85014; 85018; 85048; 85049; 85651; 86140; 86328

== ENCOUNTER → 2020-05-27 08:36 | Outpatient (CLI) | payer OTHER, SELFPAY ==
[2020-05-27 11:33] LABS: Anion Gap 14.2 mEq/L (5-15); Blood Urea Nitrogen 12 mg/dl (9-20); Calcium 9.5 mg/dl (8.4-10.2); Carbon Dioxide 29 mmol/L (22.0-30.0); Chloride 95 mmol/L (98-107); Estimated Glomerular Filt Rate 86 ml/min (>60); GFR (African American) 104 ML/MIN (>60); Glucose 70 mg/dl (74-100); Potassium 4.2 mmoL/L (3.5-5.1); Sodium 134 mmol/L (136-145)
== END ==
PROVIDERS: Visit Provider Orthopaedic Surgery
DX: I96 Gangrene, not elsewhere classified (principal)
CPT/HCPCS: 36415; 80048

== ENCOUNTER → 2020-05-30 08:35 | Outpatient (CLI) | payer OTHER, SELFPAY ==
[2020-05-30 10:08] LABS: Chloride 97 mmol/L (98-107); Sodium 133 mmol/L (136-145)
[2020-05-30 10:09] LABS: Potassium 4.3 mmoL/L (3.5-5.1)
[2020-05-30 10:11] LABS: Blood Urea Nitrogen 12 mg/dl (9-20); Estimated Glomerular Filt Rate 86 ml/min (>60); GFR (African American) 104 ML/MIN (>60)
[2020-05-30 10:12] LABS: Anion Gap 11.3 mEq/L (5-15); Calcium 9.6 mg/dl (8.4-10.2); Carbon Dioxide 29 mmol/L (22.0-30.0); Glucose 77 mg/dl (74-100)
== END ==
PROVIDERS: Visit Provider Orthopaedic Surgery
DX: I96 Gangrene, not elsewhere classified (principal)
CPT/HCPCS: 36415; 80048

== ENCOUNTER → 2020-06-10 10:33 | Outpatient (POV) | payer OTHER, SELFPAY | PROVIDERS: Visit Provider Dermatology | DX: Z00.00 Encounter for general adult medical examination without abnormal findings (principal) ==

== ENCOUNTER → 2020-06-24 08:37 | Outpatient (CLI) | payer OTHER, SELFPAY ==
[2020-06-24 09:29] LABS: Basophils # 2.2 K/mm3 (0-0.2); Basophils % 17.9 % (0.1-2.0); Eosinophils % 0.3 % (0.1-12.0); Hematocrit 30.8 % (42.0-52.0); Hemoglobin 10.6 g/dL (14.1-18.0); Lymphocytes # 6.9 K/mm3 (0.7-4.5); Lymphocytes % 55.8 % (10-50); Mean Corpuscular HGB Conc 34.4 g/dL (31.8-35.4); Mean Corpuscular Hemoglobin 27.6 pg (27.0-31.2); Mean Corpuscular Volume 80.2 fl (80-94); Mean Platelet Volume 7.4 fl (7.4-10.4); Monocytes # 0.8 K/mm3 (0.1-1.0); Monocytes % 6.7 % (1.7-9.3); Neutrophils # 4.6 K/mm3 (1.8-7.8); Neutrophils % 37.2 % (37.0-80.0); Red Blood Count 3.84 M/mm3 (4.60-6.20); Red Cell Distribution Width 15.3 % (11.5-17.5); White Blood Count 12.3 K/mm3 (4.8-10.8)
[2020-06-24 10:12] LABS: Platelet Count 8 K/mm3 (142-424)
[2020-06-24 10:13] LABS: MANUAL DIFFERENTIAL MANUAL DIFFERENTIAL (MANUAL DIFF)
[2020-06-24 10:17] LABS: Lymphocytes % 40 % (10-50); Monocytes % 12 % (2-9); Neutrophils % 34 % (42-76); Nucleated Red Blood Cells 1; Platelet Estimate Marked Decrease; RBC Morphology Normal; Total Cells Counted 100
== END ==
PROVIDERS: Visit Provider Internal Medicine
DX: M79.662 Pain in left lower leg (principal)
CPT/HCPCS: 36415; 85007; 85025

== ENCOUNTER → 2020-06-30 09:41 | Outpatient (CLI) | payer OTHER, SELFPAY ==
[2020-06-30 10:38] LABS: Basophils # 0.6 K/mm3 (0-0.2); Basophils % 11.4 % (0.1-2.0); Eosinophils % 0.5 % (0.1-12.0); Lymphocytes % 61.9 % (10-50); Mean Corpuscular HGB Conc 35.9 g/dL (31.8-35.4); Mean Corpuscular Hemoglobin 28.3 pg (27.0-31.2); Mean Corpuscular Volume 78.8 fl (80-94); Mean Platelet Volume 8.4 fl (7.4-10.4); Monocytes # 0.4 K/mm3 (0.1-1.0); Neutrophils # 1.4 K/mm3 (1.8-7.8); Neutrophils % 29.6 % (37.0-80.0); Red Blood Count 3.17 M/mm3 (4.60-6.20); Red Cell Distribution Width 15.4 % (11.5-17.5); White Blood Count 4.8 K/mm3 (4.8-10.8)
[2020-06-30 11:16] LABS: Platelet Count 14 K/mm3 (142-424)
[2020-06-30 11:18] LABS: MANUAL DIFFERENTIAL MANUAL DIFFERENTIAL (MANUAL DIFF)
[2020-06-30 12:29] LABS: Lymphocytes % 49 % (10-50); Microcytosis 1+; Monocytes % 12 % (2-9); Neutrophils % 39 % (42-76); Nucleated Red Blood Cells 3; Platelet Estimate Marked Decrease; Total Cells Counted 100
== END ==
PROVIDERS: Visit Provider Internal Medicine
DX: D69.6 Thrombocytopenia, unspecified (principal)
CPT/HCPCS: 36415; 85007; 85025

== ENCOUNTER → 2020-07-01 08:50 | Outpatient (POV) | payer OTHER, SELFPAY | PROVIDERS: Visit Provider Dermatology | DX: Z00.00 Encounter for general adult medical examination without abnormal findings (principal) ==

== ENCOUNTER 2020-07-02 08:05 | Outpatient (CLI) | payer OTHER, SELFPAY ==
[2020-07-02] VITALS (10 sets, daily range): BP systolic 110–134; BP diastolic 66–86; PULSE 98–105; RESP 18–20; TEMP 36.3–36.5; O2SAT 97; BMI 28.5
[2020-07-02 08:44] LABS: Basophils % 16.2 % (0.1-2.0); Eosinophils % 0.4 % (0.1-12.0); Lymphocytes % 68.2 % (10-50); Mean Corpuscular Hemoglobin 27.9 pg (27.0-31.2); Mean Corpuscular Volume 77.6 fl (80-94); Mean Platelet Volume 8.2 fl (7.4-10.4); Monocytes # 0.5 K/mm3 (0.1-1.0); Monocytes % 7.5 % (1.7-9.3); Neutrophils # 1.4 K/mm3 (1.8-7.8); Neutrophils % 23.9 % (37.0-80.0); Red Blood Count 2.84 M/mm3 (4.60-6.20); Red Cell Distribution Width 15.6 % (11.5-17.5); White Blood Count 5.9 K/mm3 (4.8-10.8)
[2020-07-02 09:02] LABS: Hemoglobin 7.9 g/dL (14.1-18.0); Platelet Count 8 K/mm3 (142-424)
[2020-07-02 09:04] LABS: MANUAL DIFFERENTIAL MANUAL DIFFERENTIAL (MANUAL DIFF)
[2020-07-02 09:23] LABS: Hypochromasia 1+; Lymphocytes % 60 % (10-50); Microcytosis 1+; Monocytes % 5 % (2-9); Neutrophils % 28 % (42-76); Total Cells Counted 100
[2020-07-02 09:24] LABS: Platelet Estimate Marked Decrease
--- NOTE | 2020-07-02 14:56 | PC.NURSE ---
1320 - PREMEDICATED WITH ACETAMINOPHEN 650MG PO AND DIPHENHYDRAMINE 25MG PO AT THIS TIME.
--- NOTE | 2020-07-02 16:03 | PC.NURSE ---
1535-30 MIN POST VITAL SIGNS DONE AND POST PLT COUNT DRAWN FROM IV. IV REMOVED AFTER BLOOD DRAWN.
[2020-07-02 16:10] LABS: Platelet Count 30 K/mm3 (142-424)
== END 2020-07-02 15:50 | disposition home or self-care (01) ==
PROVIDERS: PCP Nurse Practitioner; Visit Provider Internal Medicine
DX: D69.6 Thrombocytopenia, unspecified (principal); C83.10 Mantle cell lymphoma, unspecified site
CPT/HCPCS: 36430; 85007; 85025; 85049; 86900; 86901; P9034

== ENCOUNTER → 2020-07-09 11:35 | Outpatient (CLI) | payer OTHER, SELFPAY ==
[2020-07-09 12:27] LABS: Basophils # 1.3 K/mm3 (0-0.2); Basophils % 20.6 % (0.1-2.0); Eosinophils % 0.1 % (0.1-12.0); Lymphocytes # 5.3 K/mm3 (0.7-4.5); Lymphocytes % 82.1 % (10-50); Mean Corpuscular HGB Conc 34.5 g/dL (31.8-35.4); Mean Corpuscular Hemoglobin 27.8 pg (27.0-31.2); Mean Corpuscular Volume 80.5 fl (80-94); Mean Platelet Volume 6.8 fl (7.4-10.4); Monocytes # 0.2 K/mm3 (0.1-1.0); Monocytes % 3.1 % (1.7-9.3); Neutrophils % 14.7 % (37.0-80.0); Red Blood Count 2.57 M/mm3 (4.60-6.20); Red Cell Distribution Width 16.5 % (11.5-17.5); White Blood Count 6.5 K/mm3 (4.8-10.8)
[2020-07-09 12:54] LABS: Hematocrit 20.7 % (42.0-52.0); Hemoglobin 7.1 g/dL (14.1-18.0); Platelet Count 10 K/mm3 (142-424)
[2020-07-09 12:56] LABS: MANUAL DIFFERENTIAL MANUAL DIFFERENTIAL (MANUAL DIFF)
[2020-07-09 13:43] LABS: Lymphocytes % 58 % (10-50); Monocytes % 1 % (2-9); Neutrophils % 22 % (42-76); Platelet Estimate Marked Decrease; RBC Morphology Normal; Total Cells Counted 100
== END ==
PROVIDERS: Visit Provider Internal Medicine
DX: D69.6 Thrombocytopenia, unspecified (principal); C83.10 Mantle cell lymphoma, unspecified site
CPT/HCPCS: 36415; 85007; 85025

== ENCOUNTER → 2020-07-16 11:09 | Outpatient (CLI) | payer OTHER, SELFPAY ==
[2020-07-16 11:40] LABS: Eosinophils % 0.1 % (0.1-12.0); Mean Corpuscular HGB Conc 35.6 g/dL (31.8-35.4); Monocytes # 0.3 K/mm3 (0.1-1.0)
[2020-07-16 11:47] LABS: Basophils # 1.9 K/mm3 (0-0.2); Basophils % 16.3 % (0.1-2.0); Lymphocytes # 10.3 K/mm3 (0.7-4.5); Mean Corpuscular Hemoglobin 27.4 pg (27.0-31.2); Mean Corpuscular Volume 77.1 fl (80-94); Mean Platelet Volume 7.9 fl (7.4-10.4); Monocytes % 2.8 % (1.7-9.3); Neutrophils # 0.8 K/mm3 (1.8-7.8); Red Blood Count 2.94 M/mm3 (4.60-6.20); Red Cell Distribution Width 16.3 % (11.5-17.5); White Blood Count 11.5 K/mm3 (4.8-10.8)
[2020-07-16 11:48] LABS: Neutrophils % 7.1 % (37.0-80.0)
[2020-07-16 12:27] LABS: Hematocrit 22.6 % (42.0-52.0); Hemoglobin 8.1 g/dL (14.1-18.0); Platelet Count 12 K/mm3 (142-424)
[2020-07-16 12:29] LABS: MANUAL DIFFERENTIAL MANUAL DIFFERENTIAL (MANUAL DIFF)
[2020-07-16 13:04] LABS: Anisocytosis 1+; Lymphocytes % 67 % (10-50); Microcytosis 1+; Monocytes % 3 % (2-9); Neutrophils % 11 % (42-76); Platelet Estimate Marked Decrease; Total Cells Counted 100
== END ==
PROVIDERS: Visit Provider Internal Medicine
DX: C83.10 Mantle cell lymphoma, unspecified site (principal); D69.6 Thrombocytopenia, unspecified
CPT/HCPCS: 36415; 85007; 85025

== ENCOUNTER 2020-07-23 14:00 | Outpatient (RCR) | payer OTHER, SELFPAY ==
--- NOTE | 2020-05-21 13:46 | HMH.PTOPWND ---
Rehab Outpt Wound Evaluation Rehab OP Wound Evaluation Start: 05/21/20 13:27 Freq: Status: Active Protocol: Document 05/21/20 13:29 SHALINI (Rec: 05/21/20 13:46 PHORNE [id number]) Electronically Signed By Spencer Arredondo, PT 05/21/20 13:29 Subjective/History History History Pt is 60 yowm who presents with new onset L medial calf abcess S/P surgical debridement on 05/20. He reports onset of the sore began ~ 6 days ago with rapid progression. He has hx of a prior abcess very similar slightly inferior to this one. This new abcess was preceded by the presence of multiple small, red papules throughout the L lower leg. He also has hx of cancer and continues to undergo treatment. Subjective Subjective Pt c/o significant pain with dressing changes and has a very low tolerance for pain. Wound Eval Wound Left Upper Medial Calf Wound Type abcess Is This a Chronic Wound No Wound Length (cm) 3.9 Wound Width (cm) 3.2 Wound Depth (cm) 1.5 Wound Bed Appearance Beefy Red Percentage Granulated (%) 100 Wound Margins Description Well Defined Surrounding Tissue Appearance Mikes,Purple Edema Type Non-Pitting Edema Degree 2+ Query Text:1+ Trace, Barely Detectable, Rebound 15-30 seconds 2+ Moderate, Slight Indentation, Rebound 10-20 seconds 3+ Deep, Deeper Indentation, Rebound > 30 seconds 4+ Very Deep, Rebound > 60 seconds Edema Appearance Puffy Drainage Description Sanguineous Drainage Amount Moderate Primary Dressing silicone contact layer Comment Versatel one Wound Secondary Dressing Type Absorbant Pad,Gauze Roll/Wrap, Adhering Gauze Roll Comment opticell Ag x 3 Wound Debridement Method Gauze Wound Debridement Amount of Tissue None Removed Dressing Change Patient Tolerance Tolerated Well Wound Problems/Impairments Impairments Problems/Impairmments Palpation Tenderness,Impaired Walking,Impaired Recreational Activities,Increased Edema, Wo
--- NOTE | 2020-06-20 10:27 | HMH.RHREAS ---
Rehab Reassessment Rehab OP Re-assessment Start: 06/20/20 10:22 Freq: Status: Active Protocol: Document 06/20/20 10:24 SHALINI (Rec: 06/20/20 10:27 SHALINI [id number]) Electronically Signed By Spencer Arredondo, PT 06/20/20 10:24 Rehab Re-assessment Subjective Subjective Pt reports much less pain and tenderness overall in L medial lower leg. Objective Objective Notes Left medial calf wound: L= 2.3 cm, W= 2.4 cm Assessment Progress Assessment Progressing as Expected Assessment Notes No depth noted in wound bed, full granulation tissue with some epithelialization occuring. Patient goals met ST,2,3,4 Goals Not Met LT,2,3,4,5 Revised Goals none Plan Plan Cont with initial POC. Frequency of Therapy 2 x/wk Duration of therapy 8 wks Time and Billing Re-Eval Time 15 Re-Eval Billing Units 1 PHYSICIAN CERTIFICATION: I certify the specified therapy services for Wilder Palmer JR are required, authorized, and reviewed every 30 days.
== END 2020-07-23 14:05 | disposition home or self-care (01) ==
LOC: PT 14:00
PROVIDERS: Visit Provider Orthopaedic Surgery
DX: L02.416 Cutaneous abscess of left lower limb (principal)
CPT/HCPCS: 97162; 97164; 97597; 97605

== ENCOUNTER 2020-12-12 11:04 | Emergency (ER) | payer OTHER, SELFPAY ==
[2020-12-12] VITALS (7 sets, daily range): BP systolic 153–159; BP diastolic 97–104; PULSE 97–119; RESP 16–22; TEMP 36.6–36.7; O2SAT 96–98; BMI 25.2
--- NOTE | 2020-12-12 11:11 | CT_ITS ---
PROCEDURE: CT HEAD/BRAIN WO CON CLINICAL INDICATION: DOUBLE VISION COMPARISON: No exams were available for comparison TECHNIQUE: Axial images obtained. All CT scans at the facility use one or more dose reduction, viz: automated exposure control, ma/kV adjustment per patient size (including targeted exams where dose is matched to indication, i.e. head), or iterative reconstruction technique. FINDINGS: No midline shift, mass effect, intracranial hemorrhage, hydrocephalus, or extra-axial fluid collection is evident. There is a right frontal ventriculostomy tube present. The tip of the tube lies near the region the right foramen of [place]ro. There is mild generalized atrophy. The ventricles are slightly prominent but may be related to the underlying volume loss. The left temporal horn is slightly more prominent than the right. The calvarium has an unremarkable appearance. Minimal amount fluid is noted in the mastoid sinuses. There is mild to moderate mucosal thickening of the ethmoid sinuses. No sinus air-fluid level. IMPRESSION: 1. No definite acute intracranial findings. 2. Right ventriculostomy tube in place. The ventricles are slightly prominent but may be due to the mild atrophy. No previous exams are available for comparison. 3. Sinus disease Dictated by: Ismael Solorio MD 12/12/2020 11:23 Ismael Solorio MD in [facility] 12/12/2020 11:23
--- NOTE | 2020-12-12 11:19 | HMH.EDGENADL ---
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 Follow-up with [facility] oncology as scheduled. Call Dr. Gill to arrange follow-up appointment. Return to the emergency department if any new symptoms or worsening of condition. Prescriptions: predniSONE [Prednisone 20mg Tab] 60 mg PO DAILY #21 tab Transmission Status: Pending to [id number] Referrals: Carlo Gill MD [Primary Care Provider] - - Critical Care Critical Care Time: No Attestation: On , the high probability of a clinically significant, sudden or life threatening deterioration of the following system(s) required my full and direct attention, intervention and personal management. The time I documented below is in addition to time spent performing reported procedures but includes the following listed in this critical care notation. Medical Decision Making - [place] Inquiry Pt receiving controlled substance: No Vital Signs: 12/12/20 11:04 12/12/20 12:24 Temperature 98.1 F Temperature Source Oral Pulse Rate [Radial] 119 H Respiratory Rate 16 Blood Pressure [Right Arm] 159/104 H Blood Pressure Mean [Right Arm] 122 Blood Pressure Position [Right Arm] Sitting 02 Sat by Pulse Oximetry 96 Oxygen Delivery Method Room Air - Lab Data Lab Results 12/12/20 11:26: WBC 18.5 H, RBC 2.47 L, Hgb 8.1 L, Hct 23.1 L*, MCV 93.7, MCH 32.7 H, MCHC 34.9, RDW 21.8 H, Plt Count 22 L*, MPV 7.0 L, Neut % (Auto) 15.0 L, Lymph % (Auto) 79.6 H, [facility] % (Auto) 4.0, Eos % (Auto) 1.3, Baso % (Auto) 5.6 H, Neut # (Auto) 2.8, Lymph # (Auto) 14.7 H, [facility] # (Auto) 0.7, Eos # (Auto) 0.3, Baso # (Auto) 1.0 H, Total Counted 100, Neutrophils % (Manual) 19 L, Lymphocytes % (Manual) 70 H, Atypical Lymphs % 10.0, Monocytes % (Manual) 1 L, Platelet Estimate Marked decrease, RBC Morphology Normal 12/12/20 11:26: Sodium 139, Potassium 3.5, Chloride 99, Carbon Dioxide 29, Anion Gap 14.5, BUN 15, Creatinine 1.10, Estimated Creat Clear 85, Estimated GFR 68, Est GFR ( Amer) 83, Glucose 145 H, Calcium 9.6, Total Bilirubin 0.3, AST 144 H, ALT 25, Alkaline Phosphatase 188 H, Total Protein 6.5, Albumin 4.0, Globulin 2.5, Albumin/Globulin Ratio 1.6 12/12/20 11:26: ESR > 140 H 12/12/20 11:26: C-Reactive Protein 61.3 H Result diagrams: 12/12/20 11:26 12/12/20 11:26 - Physician Consults Physician Consulted: Alexey Time: 11:47 Reason -: Opthalmology Eval/Care Comment/Response: No other testing or treatment needed from his perspective. He concurs with finding of isolated right 6th nerve palsy. He is aware of the patient's symptoms and exam findings from his visit at their office yesterday. Additional Consult: Jairo Time: 12:15 Reason -: Pt condition Comment/Response: Requests sed rate and CRP. States patient can follow-up in their office. Additional Consult[facility] Time: 12:40 Reason -: Other (oncology) Comment/Response: Will review patient's chart and call back with any recommendations. Callback received at 12:55 PM. He states patient can be started on steroids for his nerve palsy and follow-up with oncology as scheduled. Patient says he receives steroids intermittently with chemotherapy but is currently not on any steroids. I will start on a prednisone short course. General Adult HPI - General Chief complaint: Eye Problems Stated complaint: double vision Time Seen by Provider: 12/12/20 11:19 Mode of Arrival: Ambulatory Limitations: No Limitations Description of Symptoms (Recalled from ER Triage Doc. by RN): to ed per pvt car with c/o double vision starting yesterday, seen by rafael garcia yesterday and told to go home and rest, states woke up this am with continued symptoms. pt with hx of mantle cell lymphoma. pt denies any unilateral weakness. - History of Present Illness
[2020-12-12 11:43] LABS: Chloride 99 mmol/L (98-107); Potassium 3.5 mmoL/L (3.5-5.1); Sodium 139 mmol/L (136-145)
--- NOTE | 2020-12-12 11:44 | PC.NURSE ---
speaking with Dr. Blackburn
[2020-12-12 11:45] LABS: Blood Urea Nitrogen 15 mg/dl (9-20); Creatinine Clearance Estimated 85 mL/min (50-200); Estimated Glomerular Filt Rate 68 ml/min (>60); GFR (African American) 83 ML/MIN (>60)
[2020-12-12 11:46] LABS: Alanine Aminotransferase 25 U/L (12-78); Albumin/Globulin Ratio 1.6 (1.1-1.8); Alkaline Phosphatase 188 U/L (38-126); Anion Gap 14.5 mEq/L (5-15); Aspartate Amino Transferase 144 U/L (17-59); Bilirubin,Total 0.3 mg/dl (0.2-1.3); Calcium 9.6 mg/dl (8.4-10.2); Carbon Dioxide 29 mmol/L (22.0-30.0); Globulin 2.5 g/dL (1.3-3.2); Glucose 145 mg/dl (74-100); Total Protein,Serum 6.5 g/dl (6.3-8.2)
[2020-12-12 11:56] LABS: Basophils % 5.6 % (0.1-2.0); Eosinophils # 0.3 K/mm3 (0.0-0.4); Eosinophils % 1.3 % (0.1-12.0); Hemoglobin 8.1 g/dL (14.1-18.0); Lymphocytes # 14.7 K/mm3 (0.7-4.5); Lymphocytes % 79.6 % (10-50); Mean Corpuscular HGB Conc 34.9 g/dL (31.8-35.4); Mean Corpuscular Hemoglobin 32.7 pg (27.0-31.2); Mean Corpuscular Volume 93.7 fl (80-94); Monocytes # 0.7 K/mm3 (0.1-1.0); Neutrophils # 2.8 K/mm3 (1.8-7.8); Red Blood Count 2.47 M/mm3 (4.60-6.20); Red Cell Distribution Width 21.8 % (11.5-17.5); White Blood Count 18.5 K/mm3 (4.8-10.8)
[2020-12-12 11:57] LABS: Hematocrit 23.1 % (42.0-52.0); Platelet Count 22 K/mm3 (142-424)
[2020-12-12 11:58] LABS: MANUAL DIFFERENTIAL MANUAL DIFFERENTIAL (MANUAL DIFF)
--- NOTE | 2020-12-12 11:58 | PC.NURSE ---
notified CARON WATERS of critical lab results on pt
--- NOTE | 2020-12-12 12:03 | PC.WOUNDNOTE ---
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 Gill r/t office is closed for lunch
[2020-12-12 12:08] LABS: Lymphocytes % 70 % (10-50); Monocytes % 1 % (2-9); Neutrophils % 19 % (42-76); Total Cells Counted 100
[2020-12-12 12:09] LABS: Platelet Estimate Marked Decrease; RBC Morphology Normal
--- NOTE | 2020-12-12 12:41 | PC.NURSE ---
DR GARRISON SPEAKING WITH DR THOMPSON AT [facility] HE IS COVERING FOR DR LIVE
[2020-12-12 12:44] LABS: C-Reactive Protein 61.3 mg/L (0-4)
[2020-12-12 12:47] LABS: Erythrocyte Sedimentation Rate > 140 mm/hr (0-20)
== END 2020-12-12 13:25 | disposition home or self-care (01) ==
PROVIDERS: Emergency Provider Emergency Medicine; PCP Family Medicine
DX: H49.21 Sixth [abducent] nerve palsy, right eye (principal); I48.91 Unspecified atrial fibrillation; I10 Essential (primary) hypertension; C83.10 Mantle cell lymphoma, unspecified site
CPT/HCPCS: 70450; 80053; 85007; 85025; 85651; 86140; 96374; 99282